=== PATIENT | female | born 1990 | race Two or more races ===

== ENCOUNTER 2022-09-23 04:30 | Inpatient (IN) | payer OTHER ==
[~2022-09-23] VITALS: Ht 167.6 cm; Wt 93.0 kg
[2022-09-23] MEDS ORDERED: PRENATAL TABLE1 EAC1 PO (04:58)
[2022-09-23] MEDS ORDERED: ZOVIRAX400 MG PO (04:59)
[2022-09-23] MEDS ORDERED: CLARITIN5 MG/5 ML PO (04:59)
[2022-09-23] MEDS ORDERED: IRON236 MG PO (04:59)
[2022-09-26] MEDS ORDERED: NAPR500T14 PO (09:05)
[2022-09-26] MEDS ORDERED: Tylenol #3 PO (09:05)
== END 2022-09-26 14:20 | disposition home or self-care (01) | DRG 785 ==
LOC: OB/GYN 04:30 → LDR 04:30 → O/R 07:12 → OB/GYN 10:34
PROVIDERS: ADMIT Obstetrics & Gynecology; ATTEND Obstetrics & Gynecology
PROC: 0UB70ZZ Excision of Bilateral Fallopian Tubes, Open Approach (ICD-10-PCS; 2022-09-23)
PROC: 4A1HXCZ Monitoring of Products of Conception, Cardiac Rate, External Approach (ICD-10-PCS; 2022-09-23)
PROC: 10D00Z1 Extraction of Products of Conception, Low, Open Approach (ICD-10-PCS; principal; 2022-09-23 07:00)
DX: O34.211 Maternal care for low transverse scar from previous cesarean delivery (principal); O99.824 Streptococcus B carrier state complicating childbirth; Z3A.40 40 weeks gestation of pregnancy; Z37.0 Single live birth; Z20.822 Contact with and (suspected) exposure to COVID-19; Z30.2 Encounter for sterilization

== ENCOUNTER → 2022-10-30 | Emergency (ER) | payer OTHER ==
[~2022-10-30] VITALS: Ht 167.6 cm; Wt 81.6 kg
[~2022-10-30] MED LIST: AMOX-CLAV 875-1 EACH PO; CLARITIN5 MG/5 ML PO; IRON236 MG PO; NAPR500T14 PO; PRENATAL TABLE1 EAC1 PO; Tylenol #3 PO; ZOVIRAX400 MG PO
== END | disposition home or self-care (01) ==
LOC: ER 11:40
DX: R10.2 Pelvic and perineal pain (principal); Z98.891 History of uterine scar from previous surgery

== ENCOUNTER 2023-08-31 14:57 | Outpatient (CLI) | payer OTHER | END 2023-08-31 15:10 | disposition home or self-care (01) | LOC: PRENATAL 14:57 | PROVIDERS: ATTEND Obstetrics & Gynecology Maternal & Fetal Medicine | DX: O26.849 Uterine size-date discrepancy, unspecified trimester (principal); Z14.8 Genetic carrier of other disease; O34.219 Maternal care for unspecified type scar from previous cesarean delivery; Z3A.16 16 weeks gestation of pregnancy ==

== ENCOUNTER 2023-09-25 11:23 | Outpatient (CLI) | payer OTHER | END 2023-09-25 11:24 | disposition home or self-care (01) | LOC: PRENATAL 11:23 | PROVIDERS: ATTEND Obstetrics & Gynecology Maternal & Fetal Medicine | DX: O35.3XX0 Maternal care for (suspected) damage to fetus from viral disease in mother, not applicable or unspecified (principal); O44.00 Complete placenta previa NOS or without hemorrhage, unspecified trimester; O34.219 Maternal care for unspecified type scar from previous cesarean delivery; Z3A.20 20 weeks gestation of pregnancy ==

== ENCOUNTER 2023-12-22 10:47 | Outpatient (CLI) | payer OTHER | END 2023-12-22 10:48 | disposition home or self-care (01) | LOC: PRENATAL 10:47 | PROVIDERS: ATTEND Obstetrics & Gynecology Maternal & Fetal Medicine | DX: O26.849 Uterine size-date discrepancy, unspecified trimester (principal); O36.8199 Decreased fetal movements, unspecified trimester, other fetus; Z3A.32 32 weeks gestation of pregnancy ==

== ENCOUNTER 2024-01-22 10:15 | Inpatient (IN) | payer OTHER ==
[~2024-01-22] VITALS: Ht 167.6 cm; Wt 93.4 kg
[2024-01-22 14:38] LABS: URINE APPEARANCE Clear; URINE BILIRRUBIN Negative (NEGATIVE); URINE BLOOD Negative; URINE COLOR Yellow; URINE GLUCOSE Negative (NEGATIVE); URINE LEUKOCYTE Negative; URINE NITRATE Negative; URINE PROTEIN Negative (NEGATIVE)
[2024-01-22 14:41] LABS: URINE BACTERIA 280.8 uL (0.0-1933); URINE EPITHELIAL CELLS 17.2 uL (0.0-38.8); URINE WBC 4.1 uL (0.0-23.2)
[2024-01-22 14:46] LABS: HEMATOCRIT 33.1 % (36.0-45.00); HEMOGLOBIN 10.9 g/dL (12.0-15.00); MEAN CELL VOLUME 74.8 fL (80.00-100.00); MEAN CORPUSCULAR HEMOGLOBIN 24.7 pg (27.00-32.0); PLATELET COUNT 314 K/uL (150-450); RED BLOOD COUNT 4.42 M/uL (4.00-6.00); RED CELL DISTRIBUTION WIDTH 16.1 % (11.5-14.5)
[2024-01-22 14:49] LABS: INR 0.96; PARTIAL THROMBOPLASTIN TIME 28.6 SECONDS (22.0-34.0); PROTHROMBIN TIME 10.1 SECONDS (9.0-11.5)
[2024-01-22 14:58] LABS: URINE RBC 0.7 uL (0.0-20.8)
[2024-01-26] MEDS ORDERED: CEFAZOLIN SODIUM 1,000 MG VIAL ONE (13:03)
[2024-01-26] MEDS ORDERED: OXYTOCIN 10 UNITS/ML VIAL ONE (14:20)
[2024-01-26] MEDS ORDERED: ERYTHROMYCIN BASE 3.5 GM OINT...G. OP ONE (14:22)
[2024-01-26] MEDS ORDERED: CEFAZOLIN SODIUM 1,000 MG VIAL IV ONE (16:45)
[2024-01-26] MEDS ORDERED: ERYTHROMYCIN BASE 1 GM TUBE OP ONE (16:45)
[2024-01-26] MEDS ORDERED: OXYTOCIN 10 UNITS/ML VIAL IV ONE (16:45)
[2024-01-26] MEDS ORDERED: MEPERIDINE HCL/PF 50 MG/ML VIAL IM PRN (17:00)
[2024-01-26] MEDS ORDERED: PROMETHAZINE HCL 50 MG/ML AMPUL IM PRN (17:00)
[2024-01-26 19:09] LABS: HEMOGLOBIN 10.1 g/dL (12.0-15.00); MEAN CELL VOLUME 74.4 fL (80.00-100.00); MEAN CORPUSCULAR HEMOGLOBIN 24.3 pg (27.00-32.0); MEAN CORPUSCULAR HGB CONC 32.7 g/dl (32.0-36.0); PLATELET COUNT 278 K/uL (150-450); RED BLOOD COUNT 4.17 M/uL (4.00-6.00); RED CELL DISTRIBUTION WIDTH 16.2 % (11.5-14.5)
[2024-01-26] MEDS ORDERED: PROMETHAZINE HCL 25 MG/ML AMPUL ONE (19:18)
[2024-01-26 22:35] LABS: ABG PH 7.301 (7.35-7.45); ABG pCO2 48.6 mmHg (35-45)
[2024-01-26 22:36] LABS: ABG PO2 24.7 mmHg (80-100); BASE EXCESS -3.4 mmol/l; BICARBONATE 23.4 mmol/l (23-25); Tco2 24.9 mmol/l; o2 21 %
[2024-01-26 22:37] LABS: SaO2 36.4 %
[2024-01-27] MEDS ORDERED: OxyCODONE HCL/APAP UD (PERCOCET) PO PRN (08:00)
[2024-01-27] MEDS ORDERED: PNV,CALCIUM 72/IRON/FOLIC ACID 1 TAB TABLET PO SCH (09:00)
[2024-01-27] MEDS ORDERED: SIMETHICONE 125 MG CAPSULE PO SCH (09:00)
[2024-01-27] MEDS ORDERED: DOCUSATE SODIUM 100MG CAP PO SCH (09:00)
== END 2024-01-29 13:35 | disposition home or self-care (01) | DRG 785 ==
LOC: OB/GYN 01-26 07:00 → O/R 01-26 07:40 → OB/GYN 01-26 10:15
PROVIDERS: ADMIT Obstetrics & Gynecology; ATTEND Obstetrics & Gynecology
PROC: 0UB70ZZ Excision of Bilateral Fallopian Tubes, Open Approach (ICD-10-PCS; 2024-01-26)
PROC: 4A1HXCZ Monitoring of Products of Conception, Cardiac Rate, External Approach (ICD-10-PCS; 2024-01-26)
PROC: 10D00Z1 Extraction of Products of Conception, Low, Open Approach (ICD-10-PCS; principal; 2024-01-26 07:00)
DX: O34.211 Maternal care for low transverse scar from previous cesarean delivery (principal); Z3A.38 38 weeks gestation of pregnancy; Z37.0 Single live birth; Z30.2 Encounter for sterilization; Z20.822 Contact with and (suspected) exposure to COVID-19